=== PATIENT | female | born 1990 | race Two or more races ===

== ENCOUNTER 2023-07-16 17:49 | Emergency (ER) | payer MEDICAID, OTHER ==
[~2023-07-16] VITALS: Ht 160 cm; Wt 78.7 kg
[2023-07-16] MEDS ORDERED: diphenhdrAMINE HCL 50 MG/1 ML VL IM ONE (19:45)
[2023-07-16] MEDS ORDERED: DexAMETHasone SOD PHOS 10MG/1ML VIAL INJ IM ONE (20:15)
[2023-07-16] MEDS ORDERED: PRED20TA2 PO (21:30)
[2023-07-16 21:41] VITALS: BP 101/68; PULSE 73; RESP 16; TEMP 98.2; O2SAT 99
== END 2023-07-16 21:51 | disposition home or self-care (01) ==
LOC: ER 17:49
DX: L50.9 Urticaria, unspecified (principal); R51.9 Headache, unspecified
CPT/HCPCS: 96372; 99284; J1100; J1200